=== PATIENT | female | born 1980 | race Caucasian/White ===

== ENCOUNTER 2020-02-25 14:52 | Emergency (ER) | payer MEDICAID ==
[~2020-02-25] VITALS: Ht 167.6 cm; Wt 827.8 kg
[2020-02-25 15:12] VITALS: Ht 167.6 cm; Wt 827.8 kg
[2020-02-25 17:09] VITALS: BP 108/66
== END 2020-02-25 17:09 | disposition home or self-care (01) ==
LOC: ED 14:52
DX: J18.9 Pneumonia, unspecified organism (principal); Z20.828 Contact with and (suspected) exposure to other viral communicable diseases; Z88.8 Allergy status to other drugs, medicaments and biological substances
CPT/HCPCS: 87804; J0696; J1885; Q0092

== ENCOUNTER 2020-05-10 20:38 | Emergency (ER) | payer SELFPAY ==
[~2020-05-10] VITALS: Ht 167.6 cm; Wt 84.4 kg
[2020-05-10 20:55] VITALS: Ht 167.6 cm; Wt 84.4 kg
[2020-05-10 22:01] LABS: BASOPHIL % 0.4 % (0-2); PLATELET COUNT 329 x10^3mcL (130-400); RED CELL DISTRIBUTION WIDTH 13.6 % (11.5-14.5)
[2020-05-11 00:18] VITALS: BP 105/71
== END 2020-05-11 00:18 | disposition home or self-care (01) ==
LOC: ED 20:38
PROVIDERS: Emergency Medicine
DX: D25.9 Leiomyoma of uterus, unspecified (principal); N83.202 Unspecified ovarian cyst, left side; N83.201 Unspecified ovarian cyst, right side; Z88.8 Allergy status to other drugs, medicaments and biological substances
CPT/HCPCS: Q0092